=== PATIENT | male | born 1970 | race Caucasian/White ===

== ENCOUNTER → 2022-12-14 | Day surgery (SDC) | payer MEDICAID ==
[2022-12-08 14:45] LABS: Basophils # (auto) 0 10 ^3/uL (0-0.2); Basophils % (auto) 0.4 % (0.0-2.0); Eosinophils # (auto) 0.3 10 ^3/uL (0-0.8); Eosinophils % (auto) 4.2 % (0.0-7.0); Hemoglobin 14.9 g/dL (13.5-17.5); Lymphocytes # (auto) 2.3 10 ^3/uL (0.4-5.4); Mean Corpuscular Hemoglobin 27.6 pg (28.0-32.0); Mean Corpuscular Volume 83.5 fL (80.0-100.0); Monocytes # (auto) 0.7 10 ^3/uL (0-1.3); Neutrophils # (auto) 4.8 10 ^3/uL (1.6-8.6); Neutrophils % (auto) 58.4 % (37.0-80.0); Nucleated Red Blood Cells % 0.1 %; Red Blood Cells 5.39 10^6/uL (4.5-5.90); Red Cell Distribution Width 14.5 % (11.8-14.3); White Blood Cell 8.2 10^3/uL (4.4-10.8)
[2022-12-08 15:08] LABS: Potassium 4.3 mmol/L (3.5-5.1)
[2022-12-08 15:13] LABS: BUN/Creatinine Ratio 13.2 (10.0-20.0); Bilirubin, Total 0.5 mg/dL (0.2-1.0); INR 0.99 (0.9-1.15); Partial Thromboplastin Time 30.5 SEC (24.5-34.5); Total Protein 7.5 g/dL (6.4-8.2)
[2022-12-08 15:14] LABS: Urine Bacteria FEW /hpf (None Seen); Urine Blood 1+ /uL (Negative); Urine Mucus FEW (None Seen); Urine Specific Gravity 1.026 (1.001-1.035); Urine WBC 27 /hpf (0 - 3)
[~2022-12-14] VITALS: Ht 180.3 cm; Wt 113.4 kg
[~2022-12-14] MED LIST: CIPROFLOXACIN 400MG/200ML 0 ML IV ONE; COLC1CAP PO; DexAMETHasone SOD PHOS 10MG/1ML VIAL INJ ONE; GLYCOPYRROLATE 0.2 MG/ML 1ML VIAL ONE; IOHEXOL 300 MG/ML 100ML BOTTLE IJ ONE; KETAMINE HCL 10 ML ONE; KETOROLAC TROMETH 30 MG/ML 1ML VIAL ONE; LIDOCAINE 2% (LOCAL ANESTH.) PF 5ml SDV ONE; LIDOCAINE 2% JELLY 11ml (GLYDO) ONE; ONDANSETRON HCL 4 MG/2 ML VIAL ONE; PROPOFOL 10 MG/ML 20 ML IV ONE; ceFAZolin 1GM/50ML 100 ML IV ONE; ePHEDrine SULFATE 50 MG/ML AMP ONE
[2022-12-14 09:13] VITALS: PULSE 83; RESP 18; TEMP 97.7; O2SAT 100
[2022-12-14 10:00] VITALS: BP 142/82; O2SAT 98
[2022-12-14 10:15] VITALS: PULSE 63; RESP 14
== END | disposition home or self-care (01) ==
LOC: SUR 06:50
PROVIDERS: ATTEND Urology
DX: N20.0 Calculus of kidney (principal)
CPT/HCPCS: 36415; 50590; 80053; 81001; 85025; 85610; 85730; J0690; J1100; J1885; J2001; J2405; J2704; 93005